=== PATIENT | female | born 1965 | race Two or more races ===

== ENCOUNTER 2018-02-12 08:34 | Outpatient (CLI) | payer OTHER | END 2018-02-12 08:55 | disposition home or self-care (01) | LOC: SONOGRAMA 08:34 | DX: M05.49 Rheumatoid myopathy with rheumatoid arthritis of multiple sites (principal); R07.89 Other chest pain; K76.0 Fatty (change of) liver, not elsewhere classified ==

== ENCOUNTER 2018-03-05 08:40 | Outpatient (CLI) | payer OTHER | END 2018-03-05 08:54 | disposition home or self-care (01) | LOC: NUCLEAR 08:40 | DX: M05.49 Rheumatoid myopathy with rheumatoid arthritis of multiple sites (principal); M81.0 Age-related osteoporosis without current pathological fracture | CPT/HCPCS: 77080; 78315; 78305; A9503 ==

== ENCOUNTER 2018-04-25 12:10 | Outpatient (CLI) | payer OTHER | END 2018-04-25 12:13 | disposition home or self-care (01) | LOC: SONOGRAMA 12:10 → MAMO-SONO 13:15 | DX: E03.8 Other specified hypothyroidism (principal); E07.89 Other specified disorders of thyroid ==